=== PATIENT | female | born 1980 | race Caucasian/White ===

== ENCOUNTER 2022-05-05 09:08 | Emergency (ER) | payer MEDICAID ==
[~2022-05-05] VITALS: Ht 167.6 cm; Wt 62.6 kg
--- NOTE | 2022-05-05 09:30 | NUR ---
RECEVED PT 42 YRS female came in by prasanjuanita gENRALIZED RASH ROUND CIRCALE SPOTING C/O ITTCHING
--- NOTE | 2022-05-05 09:40 | NUR ---
SEEN BY DR. JULIAN
[2022-05-05] MEDS ORDERED: PRED20TA PO (09:42)
[2022-05-05] MEDS ORDERED: DEXAMETHASONE SOD PHOSPHATE 10 MG/ML VIAL ONE (09:45)
[2022-05-05] MEDS ORDERED: DEXAMETHASONE SOD PHOSPHATE 10 MG/ML VIAL IM ONE (10:00)
--- NOTE | 2022-05-05 10:05 | NUR ---
Patient discharged to home in stable condition. Written and verbal after care instructions given. Patient verbalizes understanding of instruction. D/C HOME NO ITCHING CONTROLLED
[2022-05-05 10:15] VITALS: BP 135/98
== END 2022-05-05 10:16 | disposition home or self-care (01) ==
LOC: ER 09:12
DX: R21 Rash and other nonspecific skin eruption (principal); F41.9 Anxiety disorder, unspecified; Z79.52 Long term (current) use of systemic steroids
CPT/HCPCS: 99283; 96372; J1100